=== PATIENT | male | born 1965 | race Two or more races ===

== ENCOUNTER 2022-10-10 00:40 | Inpatient (IN) | payer OTHER ==
[~2022-10-10] VITALS: Ht 177.8 cm; Wt 81.6 kg
[2022-10-10 01:32] LABS: Mean Corpuscular Hemoglobin 27.9 pg (28.0-32.0)
[2022-10-10 01:34] LABS: Hematocrit 25.6 % (41.0-53.0); Hemoglobin 8.5 g/dL (13.5-17.5); Mean Corpuscular Hgb Conc. 33.1 g/dL (32.0-36.0); Mean Corpuscular Volume 84.3 fL (80.0-100.0); Red Blood Cells 3.04 10^6/uL (4.5-5.90); Red Cell Distribution Width 17.6 % (11.8-14.3)
[2022-10-10 01:42] LABS: White Blood Cell 1.2 10^3/uL (4.4-10.8)
[2022-10-10 01:43] LABS: Basophils % (manual) 0 (0.0-2.0); Blast Cells 0; Eosinophils % (manual) 0 (0-7); Metamyelocytes % 0; Myelocytes % 0; Promyelocytes % 0; Reactive Lymphocytes 0
[2022-10-10 01:50] LABS: Alanine Aminotransferase 33 U/L (16-61); Albumin 2.1 g/dL (3.4-5.0); Anion Gap 17 (5-15); Aspartate Aminotransferase 29 U/L (15-37); BUN/Creatinine Ratio 23.4; Blood Alcohol < 3.0 mg/dL (0-5); Blood Urea Nitrogen 57 mg/dL (7-18); Calcium 8.1 mg/dL (8.5-10.1); Carbon Dioxide 26 mmol/L (21-32); Chloride 96 mmol/L (98-107); GFR African American 36 mL/min; GFR Non-African American 29 mL/min; Glucose 78 mg/dL (74-106); Magnesium 2.3 mg/dL (1.6-2.6); Sodium 139 mmol/L (136-145)
[2022-10-10 01:52] LABS: Alkaline Phosphatase 174 U/L (45-117); Bilirubin, Total 1.4 mg/dL (0.2-1.0); Lactic Acid w/Reflex 3.9 mmol/L (0.4-2.0); Total Protein 5.6 g/dL (6.4-8.2)
[2022-10-10] MEDS ORDERED: LACTATED RINGER'S 1,000 ML IV ONE (02:15)
[2022-10-10] MEDS ORDERED: LACTATED RINGER'S 2,450 ML IV ONE (02:30)
[2022-10-10] MEDS ORDERED: PIPERACILLIN-TAZOB 3.375GM 100 ML IV ONE (02:30)
[2022-10-10] MEDS ORDERED: VANCOMYCIN 1GM/250ML 250 ML IV ONE ×2 (02:30→06:30)
[2022-10-10 02:40] LABS: Potassium 2.7 mmol/L (3.5-5.1)
[2022-10-10] MEDS ORDERED: POTASSIUM EFFERVESENT TAB 25 MEQ PO ONE (03:00)
[2022-10-10] MEDS ORDERED: POTASSIUM CHL 20MEQ/100ML 100 ML IV ONE (03:00)
[2022-10-10 03:04] LABS: Band Neutrophils % (manual) 31; Lymphocytes % (manual) 22 (10.0-50.0); Monocytes % (manual) 4 (0-12)
[2022-10-10] MEDS ORDERED: ALBUMIN 25% 100 ML IV ONE (03:15)
[2022-10-10 03:24] LABS: INR 1.62 (0.9-1.15); Partial Thromboplastin Time 25.6 sec (24.6-33.4)
[2022-10-10] MEDS ORDERED: fentaNYL CITRATE 100 MCG/2 ML VL IV ONE (04:00)
[2022-10-10] MEDS ORDERED: ACETAMINOPHEN IV 1000 MG/100ML (10MG/ML) IV ONE (04:00)
[2022-10-10] MEDS ORDERED: NOREPINEPHRINE 8 MG/250ML KIT 250 ML IV ONE (04:27)
[2022-10-10] MEDS: NOREPINEPHRINE 8 MG/250ML KIT 250 ML IV SCH (04:37)
[2022-10-10 05:40] LABS: Urine Amorphous Crystal FEW /hpf (None Seen); Urine Bacteria NONE SEEN /hpf (None Seen); Urine Blood Negative /uL (Negative); Urine Hyaline Cast FEW /lpf (0 - 2); Urine Specific Gravity 1.016 (1.001-1.035); Urine WBC 2 /hpf (0 - 3)
[2022-10-10] MEDS ORDERED: MORPHINE SULFATE INJ 2 MG/ml SYRG IV PRN ×2 (06:00→12:45)
[2022-10-10] MEDS ORDERED: SODIUM CHLORIDE 0.9% 1,000 ML IV SCH (06:00)
[2022-10-10] MEDS ORDERED: ACETAMINOPHEN 325 MG TAB PO PRN (06:00)
[2022-10-10] MEDS ORDERED: PHENTOLAMINE MESYLATE 5 MG INJ VIAL SUBCUT ONE (06:00)
[2022-10-10] MEDS ORDERED: HYDROcodone-ACET 5/325MG TAB PO PRN (06:00)
[2022-10-10] MEDS ORDERED: VANCOMYCIN PER PHARMACY 0 MG IV SCH (06:00)
[2022-10-10] MEDS ORDERED: FILGRASTIM (TBO) 300 MCG/0.5 ML SYRG SC ONE (06:00)
[2022-10-10] MEDS ORDERED: NITROGLYCERIN 0.4 MG SL TAB SL PRN (06:00)
[2022-10-10] MEDS ORDERED: ONDANSETRON HCL 4 MG/2 ML VIAL IV PRN (06:00)
[2022-10-10 06:14] LABS: Alcohol, Urine < 3.0 mg/dL (0-10); Amphetamine Screen, Urine NEGATIVE (NEGATIVE); Barbiturate Scree,Urine NEGATIVE (NEGATIVE); Benzodiazephine Screen, Urine NEGATIVE (NEGATIVE); Cannabinoid Screen, Urine NEGATIVE (NEGATIVE); Cocaine Screen, Urine NEGATIVE (NEGATIVE); Opiate Scree,Urine NEGATIVE (NEGATIVE); Phencyclidine Screen, Urine NEGATIVE (NEGATIVE)
[2022-10-10] MEDS: PANTOPRAZOLE 40 MG TAB PO SCH (09:51)
[2022-10-10] MEDS ORDERED: PIPERACILLIN-TAZOB 3.375GM 50 ML IV SCH (10:30)
[2022-10-10] MEDS: SODIUM CHLORIDE 0.9% 1,000 ML IV SCH (12:45)
[2022-10-10] MEDS ORDERED: MAGIC MOUTHWASH 55 ML SUSP MT ONE (12:45)
[2022-10-10 13:54] LABS: BUN/Creatinine Ratio 24.9; Calcium 7.7 mg/dL (8.5-10.1)
[2022-10-10 14:59] LABS: Potassium 2.6 mmol/L (3.5-5.1)
[2022-10-10] MEDS: POTASSIUM CHL 20MEQ/100ML 100 ML IV SCH ×2 (16:06→18:06)
[2022-10-10] MEDS: SOD CHL 0.9%/ KCL 20MEQ 1,000 ML IV SCH (16:06)
[2022-10-10] MEDS: MEROPENEM 1GM IVPB 100 ML IV SCH (17:22)
[2022-10-10] MEDS: Nepro With Carbsteady ButterPecan 8oz Carton PO SCH (18:00)
[2022-10-10] MEDS: MAGIC MOUTHWASH 55 ML SUSP MT SCH ×2 (18:00→22:00)
[2022-10-10 22:08] LABS: Urine Bacteria NONE SEEN /hpf (None Seen); Urine Blood Negative /uL (Negative); Urine Specific Gravity 1.015 (1.001-1.035); Urine WBC 3 /hpf (0 - 3)
[2022-10-11] MEDS: SODIUM CHLORIDE 0.9% 1,000 ML IV SCH ×2 (01:05→08:45)
[2022-10-11] MEDS: SOD CHL 0.9%/ KCL 20MEQ 1,000 ML IV SCH ×2 (04:19→11:45)
[2022-10-11] MEDS: NOREPINEPHRINE 8 MG/250ML KIT 250 ML IV SCH (04:30)
[2022-10-11 06:46] LABS: White Blood Cell 5.2 10^3/uL (4.4-10.8)
[2022-10-11 06:52] LABS: Hematocrit 23.6 % (41.0-53.0); Mean Corpuscular Hemoglobin 28.7 pg (28.0-32.0); Mean Corpuscular Volume 84.4 fL (80.0-100.0); Red Blood Cells 2.79 10^6/uL (4.5-5.90); Red Cell Distribution Width 17.2 % (11.8-14.3)
[2022-10-11 07:01] LABS: Albumin 1.6 g/dL (3.4-5.0); BUN/Creatinine Ratio 28.4; Bilirubin, Total 0.7 mg/dL (0.2-1.0); Calcium 7.3 mg/dL (8.5-10.1); Total Protein 4.8 g/dL (6.4-8.2)
[2022-10-11 07:02] LABS: Basophils % (manual) 0 (0.0-2.0); Blast Cells 0; Eosinophils % (manual) 0 (0-7); Metamyelocytes % 0; Myelocytes % 0; Promyelocytes % 0; Reactive Lymphocytes 0
[2022-10-11] MEDS: MEROPENEM 1GM IVPB 100 ML IV SCH ×2 (07:03→18:06)
[2022-10-11] MEDS: MAGIC MOUTHWASH 55 ML SUSP MT SCH ×4 (07:04→22:00)
[2022-10-11 07:27] LABS: Potassium 2.5 mmol/L (3.5-5.1)
[2022-10-11] MEDS: POTASSIUM CHL 20MEQ/100ML 100 ML IV SCH ×4 (07:30→15:00)
[2022-10-11 07:52] LABS: Band Neutrophils % (manual) 49; Lymphocytes % (manual) 6 (10.0-50.0); Monocytes % (manual) 9 (0-12)
[2022-10-11] MEDS: Nepro With Carbsteady ButterPecan 8oz Carton PO SCH ×3 (08:00→18:00)
[2022-10-11] MEDS: PANTOPRAZOLE 40 MG TAB PO SCH (10:15)
[2022-10-11] MEDS ORDERED: VANCOMYCIN 1GM/250ML 250 ML IV SCH (11:00)
[2022-10-11] MEDS: SOD CHL 0.9%/ KCL 40MEQ 1,000 ML IV SCH (15:48)
[2022-10-11 21:29] VITALS: BP 97/64
[2022-10-11] MEDS: METHADONE HCL 10 MG TAB PO SCH (22:00)
[2022-10-12] MEDS: SOD CHL 0.9%/ KCL 40MEQ 1,000 ML IV SCH ×2 (03:16→15:49)
[2022-10-12 05:00] VITALS: BP 130/81
[2022-10-12] MEDS: MAGIC MOUTHWASH 55 ML SUSP MT SCH ×3 (05:32→19:02)
[2022-10-12] MEDS: METHADONE HCL 10 MG TAB PO SCH ×2 (05:32→15:49)
[2022-10-12 06:17] LABS: BUN/Creatinine Ratio 28.2; Calcium 7.9 mg/dL (8.5-10.1); Magnesium 2.4 mg/dL (1.6-2.6)
[2022-10-12] MEDS: MEROPENEM 1GM IVPB 100 ML IV SCH ×2 (06:36→18:00)
[2022-10-12 07:00] LABS: Potassium 3.4 mmol/L (3.5-5.1)
[2022-10-12 07:01] LABS: Hemoglobin 8.8 g/dL (13.5-17.5); Mean Corpuscular Hemoglobin 28.9 pg (28.0-32.0); Mean Corpuscular Hgb Conc. 33.8 g/dL (32.0-36.0); Mean Corpuscular Volume 85.5 fL (80.0-100.0); Red Blood Cells 3.04 10^6/uL (4.5-5.90); Red Cell Distribution Width 17.7 % (11.8-14.3); White Blood Cell 6.2 10^3/uL (4.4-10.8)
[2022-10-12 07:19] LABS: Basophils % (manual) 0 (0.0-2.0); Blast Cells 0; Eosinophils % (manual) 0 (0-7); Myelocytes % 0; Promyelocytes % 0; Reactive Lymphocytes 0
[2022-10-12 07:37] LABS: Band Neutrophils % (manual) 5; Lymphocytes % (manual) 9 (10.0-50.0); Metamyelocytes % 1; Monocytes % (manual) 7 (0-12)
[2022-10-12 09:00] VITALS: BP 111/67
[2022-10-12] MEDS: PANTOPRAZOLE 40 MG TAB PO SCH (09:42)
[2022-10-12] MEDS: Nepro With Carbsteady ButterPecan 8oz Carton PO SCH ×3 (09:42→19:01)
[2022-10-12 13:00] VITALS: BP 100/55
[2022-10-12 16:38] VITALS: BP 131/65
== END 2022-10-12 20:25 | disposition short-term general hospital (02) | DRG 871 ==
LOC: EDBD 00:40 → ER 00:45 → OVERFLOW 05:57 → TELE-CENTR 10-11 20:35
PROVIDERS: ADMIT Nurse Practitioner; ATTEND Internal Medicine
DX: A41.51 Sepsis due to Escherichia coli [E. coli] (principal); G93.41 Metabolic encephalopathy; N17.0 Acute kidney failure with tubular necrosis; R65.21 Severe sepsis with septic shock; D61.818 Other pancytopenia; E44.0 Moderate protein-calorie malnutrition; N13.30 Unspecified hydronephrosis; E86.0 Dehydration; Z20.822 Contact with and (suspected) exposure to COVID-19; E87.6 Hypokalemia; E88.09 Other disorders of plasma-protein metabolism, not elsewhere classified; G89.29 Other chronic pain; N18.9 Chronic kidney disease, unspecified; F17.200 Nicotine dependence, unspecified, uncomplicated; Z85.038 Personal history of other malignant neoplasm of large intestine; Z93.3 Colostomy status; Z68.25 Body mass index [BMI] 25.0-25.9, adult; Z85.47 Personal history of malignant neoplasm of testis; Z92.21 Personal history of antineoplastic chemotherapy; Z93.2 Ileostomy status
CPT/HCPCS: 36415; 70450; 71045; 76775; 80048; 80053; 80202; 80307; 80320; 81001; 83605; 83615; 83735; 84484; 85007; 85027; 85610; 85730; 87040; 87077; 87186; 87426; 87804; 93005; 93306; 96365; 99291; G0378; J0131; J1447; J2185; J2543; J3480; P9047